=== PATIENT | female | born 1955 | race Caucasian/White ===

== ENCOUNTER → 2020-05-03 11:06 | Outpatient (CLI) | payer MEDICARE, OTHER, SELFPAY ==
[2020-05-03 12:37] LABS: COVID19 -Nasal RAPID Negative (Negative)
== END ==
PROVIDERS: Visit Provider Physician Assistant
DX: Z11.59 Encounter for screening for other viral diseases (principal)
CPT/HCPCS: 87635

== ENCOUNTER → 2020-05-06 09:43 | Outpatient (CLI) | payer MEDICARE, OTHER, SELFPAY ==
--- NOTE | 2020-05-06 | DI.NM.S_ITS ---
PROCEDURE: NM SARA PERF SPECT REST & STR Rest and exercise myocardial perfusion SPECT with gated imaging and ejection fraction RADIOPHARMACEUTICAL: 12.2 mCi Tc-99m sestamibi IV at rest and 25.3 mCi Tc-99m sestamibi IV at peak exercise. A oneday-protocol was performed. INDICATIONS: Chest pain, unspecified TECHNIQUE: Radiopharmaceutical was injected at peak stress test, and also at rest. SPECT images were obtained. SPECT myocardial perfusion images were displayed in short axis, horizontal long axis, and vertical long axis views. Gated images were reviewed using [employer] software. COMPARISON: None. CARDIAC STRESS: A standard Jose treadmill exercise tolerance test was performed by the patient under the supervision of an attending staff. The patient exercised for 3 minutes and 26 seconds; functional aerobic impairment (STANLEY) is +42%. Hemodynamic data: There is normal heart rate response to exercise stress. Patient achieved 142% of maximum predicted heart rate at peak exercise. Hypertension at rest (BP 150/80mmHg) and hypertensive response to exercise (BP 215/105mmHg). Symptoms: Patient denied chest pain during exercise. EKG: No diagnostic EKG changes of ischemia; brief runs of SVT (probable atrial tachycardia) noted during the study. FINDINGS: Raw data: There is good myocardial labeling by radiotracer. No significant motion artifacts. Jtbt-sl-ikxyg ratio is 0.34 (normal is less than 0.38 for sestamibi tracer, and less than 0.50 for thallium tracer). Left ventricle function: Gated images demonstrate normal left ventricle wall thickening. No segmental wall motion abnormality. No transient ischemic dilation; TID is 0.88 (normal less than 1.3). The left ventricle resting end-diastolic volume is 78 mL. Left ventricle stress ejection fraction is 74%; normal values are above 45%. Myocardial perfusion: There is normal distribution of activity in the left and right ventricular myocardium. No fixed or reversible perfusion defects. IMPRESSION: Low risk, normal treadmill nuclear stress test. 1) No perfusion evidence of ischemia or infarction. 2) Normal left ventricular size, wall motion, and systolic function (EF post stress 74%). 3) No angina during the study. Significant dyspnea with exercise. 4) No ECG evidence of ischemia. 5) Brief runs of SVT (probably atrial tachycardia) present during peak exercise. 6) Hypertension at rest (BP 150/80mmHg) and hypertensive response to exercise (BP 215/105mmHg). 7) Severely reduced exercise tolerance (4.6 METs, STANLEY +42%). Target heart rate achieved. 8) Compared to the nuclear stress test done 01/28/2015, no significant change in perfusion images. Dictated by: Susan Wiley MD on 05/06/2020 at 17:20 Approved by: Susan Wiley MD on 05/06/2020 at 17:25
== END ==
PROVIDERS: PCP Physician Assistant; Referring Provider Physician Assistant; Visit Provider Physician Assistant
DX: R07.9 Chest pain, unspecified (principal)
CPT/HCPCS: 78452; 93017; A9502

== ENCOUNTER → 2022-07-21 10:29 | Outpatient (CLI) | payer MEDICARE, OTHER, SELFPAY ==
--- NOTE | 2022-07-21 10:33 | DI.RAD.S_ITS ---
PROCEDURE: XR LUMBAR SPINE 2-3V INDICATIONS: lumbago w/sciatica left side, muscle spasm, chronic pain TECHNIQUE: 3 views of the lumbar spine were acquired. COMPARISON: Merged With [facility], [place], PET NECK TO MID THIGH STD, 12/29/2016, 13:49. FINDINGS: Bones: 5 [id number] vertebrae are present. Mild dextroconvex curvature of the lumbar spine. Mild superior endplate compression deformity of L3 is of uncertain age. No suspicious bony lesions. Okvq-[id number]-ojvvdefy multilevel spondylosis. Soft tissues: Overlying bowel gas pattern is normal. No suspicious soft tissue calcifications. IMPRESSION: Mild L3 compression fracture of uncertain age. Recommend correlation for point tenderness. MRI could be performed for further evaluation if indicated clinically. Approved by: Thomas Ac M.D. on 07/21/2022 at 12:30
--- NOTE | 2022-07-21 10:33 | DI.RAD.S_ITS ---
PROCEDURE: XR THORACIC SPINE 2V INDICATIONS: lumbago w/sciatica left side, muscle spasm, chronic pain TECHNIQUE: 2 views of the thoracic spine were acquired. COMPARISON: [facility], [place], PET NECK TO MID THIGH STD, 12/29/2016, 13:49. FINDINGS: Bones: No acute fractures or dislocations. No suspicious bony lesions. 12 pairs of ribs are noted, and appear intact where visualized. Mild levoconvex curvature of the thoracic spine. Mild multilevel degenerative endplate changes and disc space narrowing. Soft tissues: No paravertebral stripe thickening. IMPRESSION: Mild multilevel spondylosis. No acute osseous abnormality. If the symptoms persist, consider cross sectional imaging such as MRI or CT for further assessment. Approved by: Thomas Ac M.D. on 07/21/2022 at 12:21
--- NOTE | 2022-07-21 10:33 | DI.RAD.S_ITS ---
PROCEDURE: XR SACROILIAC JOINT MIN 3V INDICATIONS: lumbago w/sciatica left side, muscle spasm, chronic pain TECHNIQUE: 3 views of the sacroiliac joints were acquired. COMPARISON: None. FINDINGS: Bones: No bony erosions or ankylosis. No suspicious bony lesions. No fractures. Mild degenerative changes at the sacroiliac joints bilaterally Soft tissues: Overlying bowel gas pattern is normal. No suspicious soft tissue densities. IMPRESSION: Mild bilateral sacroiliac joint osteoarthrosis. Approved by: Thomas Ac M.D. on 07/21/2022 at 12:31
[2022-07-21 13:17] LABS: Alanine Aminotransferase 14 IU/L (<35); Albumin 4.2 g/dL (3.5-5.0); Albumin Globulin Ratio 1.5 (1.0-2.8); Alkaline Phosphatase 95 U/L (38-126); Aspartate Aminotransferase 21 IU/L (14-36); BUN Creatinine Ratio 18.5 (6-22); Bilirubin Total 0.5 mg/dL (0.2-1.3); Blood Urea Nitrogen 17 mg/dL (7-17); Calcium 9.6 mg/dL (8.4-10.2); Carbon Dioxide 26 mmol/L (22-32); Chloride 105 mmol/L (98-107); Cholesterol 173 mg/dL (140-199); Estimated Glomerular Filt Rate > 60 mL/min (>60); Globulin 2.8 g/dL (1.7-4.1); Glucose 85 mg/dL (80-110); HDL Cholesterol 56 mg/dL (40-60); HEMOLYSIS < 15 (0-50); LDL Cholesterol Calculated 99 mg/dL (<100); Potassium 4.3 mmol/L (3.4-5.1); Sodium 139 mmol/L (137-145); Triglycerides 89 mg/dL (35-150)
[2022-07-21 13:48] LABS: TSH w/ Reflex to FT4 0.26 uIU/mL (0.47-4.68)
[2022-07-21 14:13] LABS: Free T4, Direct Thyroxine 1.37 ng/dL (0.78-2.19)
[2022-07-21 17:15] LABS: Vitamin D 25 Hydroxy (D3) 32.7 ng/mL (30.0-100.0)
== END ==
PROVIDERS: PCP Family Medicine; Referring Provider Family Medicine; Visit Provider Family Medicine
DX: M54.42 Lumbago with sciatica, left side (principal); M47.814 Spondylosis without myelopathy or radiculopathy, thoracic region; M47.816 Spondylosis without myelopathy or radiculopathy, lumbar region; M48.56XA Collapsed vertebra, not elsewhere classified, lumbar region, initial encounter for fracture; M46.1 Sacroiliitis, not elsewhere classified; M62.830 Muscle spasm of back; I10 Essential (primary) hypertension; E55.9 Vitamin D deficiency, unspecified; E78.2 Mixed hyperlipidemia; E04.1 Nontoxic single thyroid nodule; G89.29 Other chronic pain; Z79.899 Other long term (current) drug therapy
CPT/HCPCS: 36415; 72070; 72100; 72202; 80053; 80061; 82306; 84439; 84443